=== PATIENT | female | born 1990 ===

== ENCOUNTER 2017-02-08 08:53 | Observation (INO) | payer MEDICAID, OTHER ==
[2017-02-08 08:56] VITALS: BMI 22.8
[2017-02-08 09:01] VITALS: BP 107/58; PULSE 83; RESP 18; TEMP 99; O2SAT 100
[2017-02-08] MEDS ORDERED: Sodium Chloride 0.9% 1,000 ML IV STA (09:15)
[2017-02-08 09:43] LABS: BASO # 0.1 K/uL (0.0-0.2); BASO % 1.1 % (0.0-2.0); EOS # 0.1 K/uL (0.0-0.7); EOS % 1.4 % (0.0-4.0); HEMOGLOBIN 13.6 g/dL (12.0-16.0); LYMPH # 2.3 K/uL (1.0-4.3); LYMPH % 35.8 % (20.0-40.0); MEAN CELL VOLUME 90.2 fl (81.0-99.0); MEAN CORPUSCULAR HEMOGLOBIN 31.8 pg (27.0-31.0); MEAN CORPUSCULAR HGB CONC 35.2 g/dL (33.0-37.0); MEAN PLATELET VOLUME 8.2 fl (7.2-11.7); MONO # 0.4 K/uL (0.0-0.8); MONO % 6.6 % (0.0-10.0); NEUT # 3.5 K/uL (1.8-7.0); NEUT % 55.1 % (50.0-75.0); NRBC % 0.1 % (0.0-0.0); RBC 4.27 Mil/uL (3.80-5.20); RED CELL DISTRIBUTION WIDTH 13.4 % (11.5-14.5); WHITE BLOOD COUNT 6.4 K/uL (4.8-10.8)
[2017-02-08 09:54] LABS: ALB/GLOB RATIO 1.5 (1.0-2.1); ALBUMIN 4.6 g/dL (3.5-5.0); ALT/SGPT 29 U/L (9-52); AST/SGOT 19 U/L (14-36); BLOOD UREA NITROGEN 4 mg/dl (7-17); CALCIUM 10.1 mg/dL (8.4-10.2); GFR AFRICAN-AMERICAN > 60; GFR NON-AFRICAN AMERICAN > 60; LIPASE 52 U/L (23-300)
[2017-02-08 10:23] LABS: SQUAMOUS EPITHIAL 12 /hpf (0-5); URINE BACTERIA OCC (<OCC); URINE BILIRUBIN NEGATIVE (NEGATIVE); URINE BLOOD NEGATIVE (NEGATIVE); URINE CLARITY CLOUDY (Clear); URINE COLOR YELLOW (YELLOW); URINE GLUCOSE (UA) NEG (Normal); URINE HYALINE CAST 0-2 /hpf (0-2); URINE LEUKOCYTE ESTERASE NEG Leu/uL (Negative); URINE NITRATE NEGATIVE (NEGATIVE); URINE PROTEIN 30 mg/dL (NEGATIVE)
--- NOTE | 2017-02-08 12:29 | ED PDOC ---
HPI:Nausea, Vomiting, Diarrhea Time Seen by Provider: 02/08/17 09:06 Chief Complaint (Nursing): Abdominal Pain Chief Complaint (Provider): Nausea, Vomiting, Unable to Tolerate PO History Per: Patient History/Exam Limitations: no limitations Current Symptoms Are (Timing): Still Present Have you had recent travel within the past 21 days to any of the following countries: [place], [place], [place] or [place]?: No Quality Of Discomfort: Cramping Associated Symptoms: Nausea, Vomiting, Loss Of Appetite Exacerbating Factors: Food Last Bowel Movement: Today Additional Complaint(s): Azucena Neff, a 26 year old female, who is several weeks presents to the ED complaining of nausea, vomiting and an inability to tolerate PO. The patient reports she was seen a [facility] 2 days ago for similar complaints. She states she had a urine culture done which showed positive for enterococcus with thompson sensitivity. The patient states she was prescribed macrobid and has been compliant but unable to tolerate as vomits medication up. She states that today she is here because she still cannot tolerate PO. Denies vaginal bleeding. Of Note: Patient has not had any care to date. Past Medical History Reviewed: Historical Data, Nursing Documentation, Vital Signs Vital Signs: Last Vital Signs Temp 99.0 F 02/08/17 09:00 Pulse 83 02/08/17 09:00 Resp 18 02/08/17 09:00 BP 107/58 L 02/08/17 09:00 Pulse Ox 100 02/08/17 09:00 - Medical History PMH: Anxiety, Chronic Kidney Disease Denies: Arthritis, Asthma, Atrial Fibrillation, Bipolar Disorder, Bronchitis , Cardia Arrhythmia, CHF, COPD, Crohn's Disease, Dementia, Depression, Diverticulitis, Emphysema, Fractures, Gastritis, Gall Bladder Disease, HIV, HTN , Hypercholesterolemia, Hyperthyroidism, Hypothyroidism, Migraine, Mitral Valve Prolapse, Multiple Sclerosis, Osteoporosis, Pancreatitis, Parkinson's Disease, Peripheral Edema, Pneumonia, Post Traumatic Stress Disorder, Pulmonary Embolism , Rheumatoid Arthritis, Schizophrenia, Seizures, Sickle Cell Disease, Sexually Transmitted Disease, Sleep Apnea, TIA - Surgical History Surgical History: Appendectomy Denies: Pacemaker - Family History Family History: States: Diabetes - Immunization History Hx Tetanus Toxoid Vaccination: No Hx Influenza Vaccination: No Hx Pneumococcal Vaccination: No - Home Medications Home Medications: Ambulatory Orders Medication Instructions Recorded Nitrofurantoin Macrocrystals 1 cap PO BID #14 cap 07/06/17 [Macrobid] Ondansetron [Zofran] 4 mg PO Q6H PRN #10 tab 02/08/17 - Allergies Allergies/Adverse Reactions: Allergies Allergy/AdvReac Type Severity Reaction Status Date / Time naproxen Allergy Verified 02/06/17 19:05 Review of Systems Gastrointestinal: Positive for: Nausea, Vomiting, Other (Unable to tolerate PO) Genitourinary Female: Negative for: Vaginal Bleeding Physical Exam - Reviewed Nursing Documentation Reviewed: Yes Vital Signs Reviewed: Yes - Physical Exam Appears: Positive for: Non-toxic, In Acute Distress (Mild painful distress) Head Exam: Positive for: ATRAUMATIC, NORMAL INSPECTION, NORMOCEPHALIC Gastrointestinal/Abdominal: Positive for: Normal Exam, Bowel Sounds, Soft. Negative for: Tenderness (No focal tenderness of abdomen.), Guarding, Rebound Back: Positive for: Normal Inspection. Negative for: L CVA Tenderness, R CVA Tenderness Neurologic/Psych: Positive for: Alert, Oriented - Laboratory Results Result Diagrams: 02/08/17 09:30 02/08/17 09:30 - ECG O2 Sat by Pulse Oximetry: 100 (RA) Pulse Ox Interpretation: Normal Medical Decision Making Medical Decision Makin Initial Impression: 26 year old female presenting with nausea, vomiting and inability to tolerate PO Initial Plan: * Tylenol 650mg PO * NS 1000mls IV 1000mls\hr * Zofran 4mg IV * OB Transvaginal * Renal US * Reevaluation Patient will be given IV fluids and antiemitic. Blood work reviewed revealing normal white count and elements of dehydration given elevated BUN and ketones in urine. 1215 Additional IV fluids and lactative ringers ordered and tylenol given for pain. US prelim reports reviewed, twin gestation, patient informed. Scribe Attestation Documented by Vania Sandoval acting as a scribe for Mario Wilson MD. Provider Attestation: All medical record entries made by the Scribe were at my direction and personally dictated by me. I have reviewed the chart and agree that the record accurately reflects my personal performance of the history, physical exam, medical decision making, and the department course for this patient. I have also personally directed, reviewed, and agree with the discharge instructions and disposition. ED OBSERVATION Date of observation admission: 02/08/17 Time of observation admission: 11:30 - Observation admission statement Patient is being placed in observation because:: persistent nausea, hyperemesis gravidarum, evidence of dehydration on labs including ketonuria - Goals of Observation Goals of observation are:: further IVF, antiemetic and Antibiotic for enterococcus UTI on UCx from 2d ago - Progress Note Progress Note: 02/08/17 12:15 remains nauseas, further medication given, unable to tolerate PO 02/08/17 13:55 energy improving, LR to initiate for further hydration Discussed hyperemesis and need countermeasures for such in first trimester 02/08/17 15:12 pt still w nausea, pending D5 1/2NS bolus, PO tolerance Endorse Dr Gaona 3p Disposition - Clinical Impression Clinical Impression: Hyperemesis gravidarum, UTI (urinary tract infection) - Patient ED Disposition Is Patient to be Admitted: Transfer of Care - Disposition Disposition: Transfer of Care Disposition Time: 11:30 Condition: STABLE
[2017-02-08] MEDS ORDERED: Lactated Ringer's 1,000 ML IV SCH (12:30)
--- NOTE | 2017-02-08 13:26 | US ---
PROCEDURE: Renal ultrasound dated 02/08/2017 HISTORY: , back pain hx pyelno COMPARISON: Comparison made with prior renal ultrasound dated 05/02/2016. TECHNIQUE: Sonogram of the kidneys. FINDINGS: RIGHT KIDNEY: Measures: Approximately 10.3 x 4.3 x 5.5 cm. Normal in size, contour and echogenicity. No stone, solid mass lesion or hydronephrosis visualized. LEFT KIDNEY: Measures: Approximately 10.4 x 4.1 x 5.0 cm. Normal in size, contour and echogenicity. No stone, solid mass lesion or hydronephrosis visualized. OTHER FINDINGS: None. IMPRESSION: Unremarkable renal ultrasound.
[2017-02-08] MEDS ORDERED: Dextrose 5%/0.45% NS 1,000 ML IV SCH (13:30)
[2017-02-08] MEDS ORDERED: cefTRIAXone (Rocephin) 1 gm Inj ONE (13:45)
--- NOTE | 2017-02-08 15:21 | ED PDOC ---
- Laboratory Results Result Diagrams: 02/08/17 09:30 02/08/17 09:30 - ECG O2 Sat by Pulse Oximetry: 100 (RA) Medical Decision Making Medical Decision Makinp Endorsed from Dr. Wilson, patient with hyperemesis pending symptomatic relief. Receiving IV fluid hydration. 1800 Pt feeling better. Tolerated PO. DC home with zofran. Home hydration and small frequent meals. Scribe Attestation Documented by Vania Sandoval acting as a scribe for Emma Gaona MD. Provider Attestation: All medical record entries made by the Scribe were at my direction and personally dictated by me. I have reviewed the chart and agree that the record accurately reflects my personal performance of the history, physical exam, medical decision making, and the department course for this patient. I have also personally directed, reviewed, and agree with the discharge instructions and disposition. Disposition - Clinical Impression Clinical Impression: Hyperemesis gravidarum, UTI (urinary tract infection) - POA Present On Arrival: None - Disposition Disposition: Routine/Home Disposition Time: 11:30 Condition: IMPROVED
--- NOTE | 2017-02-10 10:05 | US ---
PROCEDURE: OB Pelvic Ultrasound HISTORY: abd pain, COMPARISON: None available. FINDINGS: UTERUS: Gestational sac: Single intrauterine gestation with two poles. Growth parameters: Fetus A: Gestational sac size: 2.42 cm corresponding to 6 weeks and 3 days of gestational age. Magnolia-rump length: 0.58 cm corresponding to 7 weeks and 0 days of gestational age. Mean ultrasound gestational age: 6 weeks and 5 days. THERESA from ultrasound 09/29/2017. The heart rate is 123 beats per minute. Growth parameters: Fetus B: Gestational sac size: 2.42 cm corresponding to 6 weeks and 3 days of gestational age. Magnolia-rump length: 0.73 cm corresponding to 6 weeks and 4 days of gestational age. Mean ultrasound gestational age: 6 weeks and 5 days. THERESA from ultrasound 09/29/2017. Heart rate: 133 bpm. Rosa-gestational hemorrhage: None. Date of delivery (Ultrasound estimated) : Uterus measures 7.5 x 4.0 x 5.6 cm. Normal in size and appearance. CERVIX: Long and closed. No cervical abnormality seen. RIGHT OVARY: Measures 3.3 x 1.7 x 1.8 cm. No mass lesion. Normal flow. LEFT OVARY: Not visualized. FREE FLUID: There is trace free fluid in the pelvis. OTHER FINDINGS: None. IMPRESSION: Live twin intrauterine gestation. The estimated date of delivery by ultrasound is 09/29/2017.
== END 2017-02-08 20:35 | disposition home or self-care (01) ==
LOC: H.ER 08:53 → H.EROBSV 13:49
PROVIDERS: ADMIT Emergency Medicine; ATTEND Emergency Medicine
DX: O21.0 Mild hyperemesis gravidarum (principal); O23.41 Unspecified infection of urinary tract in pregnancy, first trimester; O26.831 Pregnancy related renal disease, first trimester; O99.89 Other specified diseases and conditions complicating pregnancy, childbirth and the puerperium; Z3A.01 Less than 8 weeks gestation of pregnancy; N18.9 Chronic kidney disease, unspecified; F41.9 Anxiety disorder, unspecified; Z83.3 Family history of diabetes mellitus; R11.2 Nausea with vomiting, unspecified; R19.7 Diarrhea, unspecified

== ENCOUNTER 2018-05-15 11:37 | Emergency (ER) | payer MEDICAID, OTHER ==
[2018-05-15 11:39] VITALS: BMI 23.6
[2018-05-15 11:40] VITALS: O2SAT 100
[2018-05-15] MEDS ORDERED: Sodium Chloride 0.9% 1,000 ML IV STA ×2 (12:43→13:45)
--- NOTE | 2018-05-15 12:55 | ED PDOC ---
HPI: Influenza Time Seen by Provider: 05/15/18 11:57 Chief Complaint: Flu-like Symptoms History Per: Patient Additional complaint(s):: Pt. states she woke up with bodyaches, cough, congestion, vomiting (4 episodes), non-bloody, watery diarrhea (constant), epigastric abd pain. States she took claritin and Tylenol at 0700. Reports all of her coworkers have the same symp toms. Denies hematemesis, chest pain, SOB, hemoptysis, recent travel, melena, hematochezia, BRBPR. Past Medical History Reviewed: Historical Data, Nursing Documentation, Vital Signs Vital Signs: Last Vital Signs Temp 98.4 F 05/15/18 11:39 Pulse 76 05/15/18 11:39 Resp 17 05/15/18 11:39 BP 115/80 05/15/18 11:39 Pulse Ox 100 05/15/18 11:39 - Medical History PMH: Anxiety, Depression, Chronic Kidney Disease Denies: Arthritis, Asthma, Atrial Fibrillation, Bipolar Disorder, Bronchitis, Cardia Arrhythmia, CHF, COPD, Crohn's Disease, Dementia, Diverticulitis, Emphyse ma, Fractures, Gastritis, Gall Bladder Disease, HIV, HTN, Hypercholesterolemia, Hyperthyroidism, Hypothyroidism, Migraine, Mitral Valve Prolapse, Multiple Sclerosis, Osteoporosis, Pancreatitis, Parkinson's Disease, Peripheral Edema, Pneumonia, Post Traumatic Stress Disorder, Pulmonary Embolism, Rheumatoid Arthritis, Schizophrenia, Seizures, Sickle Cell Disease, Sexually Transmitted Disease, Sleep Apnea, TIA - Surgical History Surgical History: Appendectomy Denies: Pacemaker - Family History Family History: States: Diabetes - Immunization History Hx Tetanus Toxoid Vaccination: No Hx Influenza Vaccination: No Hx Pneumococcal Vaccination: No - Home Medications Home Medications: Ambulatory Orders Medication Instructions Recorded Zoloft 03/22/18 Ondansetron ODT [Zofran ODT] 4 mg PO TID #10 odt 05/15/18 Oseltamivir [Tamiflu] 75 mg PO BID #9 cap 05/15/18 Promethazine DM [Phenergan DM 5 - 10 ml PO Q8 PRN #120 ml 05/15/18 Syrup] - Allergies Allergies/Adverse Reactions: Allergies Allergy/AdvReac Type Severity Reaction Status Date / Time naproxen Allergy Severe SWELLING Verified 05/15/18 11:51 Review of Systems ROS Statement: Except As Marked, All Systems Reviewed And Found Negative Constitutional: Positive for: Fever ENT: Positive for: Nose Congestion Respiratory: Positive for: Cough Gastrointestinal: Positive for: Nausea, Vomiting, Abdominal Pain, Diarrhea Physical Exam - Reviewed Nursing Documentation Reviewed: Yes Vital Signs Reviewed: Yes - Physical Exam Appears: Positive for: Well, Non-toxic, No Acute Distress Skin: Positive for: Normal Color, Warm. Negative for: Rash Eye Exam: Positive for: EOMI, Normal appearance, PERRL ENT: Positive for: Normal ENT Inspection Neck: Positive for: Normal, Painless ROM Cardiovascular/Chest: Positive for: Regular Rate, Rhythm Respiratory: Positive for: CNT, Normal Breath Sounds Gastrointestinal/Abdominal: Positive for: Normal Exam, Soft. Negative for: Tenderness Back: Positive for: Normal Inspection. Negative for: L CVA Tenderness, R CVA Tenderness Extremity: Positive for: Normal ROM Neurologic/Psych: Positive for: Alert, Oriented (x3). Negative for: Aphasia, Facial Droop - Laboratory Results Result Diagrams: 05/15/18 13:15 05/15/18 13:15 Urine POC: Negative - ECG O2 Sat by Pulse Oximetry: 100 - Progress ED Course And Treament: Labs, IV NS bolus x 1, zofran 4mg IV, pepcid 20mg IV ordered. Tamiflu PO ordered. 1405 On re-evaluation, pt. reports nausea and abdominal pain have resolved. Tolerating PO fluids. Informed of results and agrees with plan and care. Disposition - Clinical Impression Clinical Impression: Influenza-like symptoms - Patient ED Disposition Is Patient to be Admitted: No - Disposition Referrals: [facility] [Outside] Disposition: Routine/Home Disposition Time: 14:05 Condition: IMPROVED Additional Instructions: JARETH JIMENEZ, thank you for letting us take care of you today. Your provider was Grady Holt MD and you were treated for FLU LIKE SYMPTOMS. The emergency medical care you received today was directed at your acute symptoms. If you were prescribed any medication, please fill it and take as directed. It may take several days for your symptoms to resolve. Return to the Emergency Department if your symptoms worsen, do not improve, or if you have any other problems. Please contact your doctor or call one of the physicians/clinics you have been referred to that are listed on the Patient Visit Information form that is included in your discharge packet. Bring any paperwork you were given at discharge with you along with any medications you are taking to your follow up visit. Our treatment cannot replace ongoing medical care by a primary care provider outside of the emergency department. Thank you for allowing the [facility] team to be part of your care today. If you had an X-Ray or CT scan: A Radiologist will review the ED reading if any change in treatment is needed we will contact you. If you had a blood, urine, or wound culture: It will take several days for the results, if any change in treatment is needed we will contact you. If you had an STI test: It will take 48 hours for the results. Please call after 1 week if you have not heard back. Prescriptions: Ondansetron ODT [Zofran ODT] 4 mg PO TID #10 odt Oseltamivir [Tamiflu] 75 mg PO BID #9 cap Promethazine DM [Phenergan DM Syrup] 5 - 10 ml PO Q8 PRN #120 ml PRN Reason: Cough Instructions: Viral Syndrome (DC) Forms: [employer] (Micronesian), [facility] ED School/Work Excuse
[2018-05-15 13:31] LABS: EOS # 0.1 K/uL (0.0-0.7); EOS % 3.7 % (0.0-4.0); HEMOGLOBIN 13.9 g/dL (12.0-16.0); LYMPH # 1.5 K/uL (1.0-4.3); LYMPH % 37.6 % (20.0-40.0); MEAN CELL VOLUME 89.6 fl (81.0-99.0); MEAN CORPUSCULAR HEMOGLOBIN 30.8 pg (27.0-31.0); MEAN CORPUSCULAR HGB CONC 34.3 g/dL (33.0-37.0); MEAN PLATELET VOLUME 7.6 fl (7.2-11.7); MONO # 0.6 K/uL (0.0-0.8); MONO % 13.8 % (0.0-10.0); NEUT # 1.8 K/uL (1.8-7.0); NEUT % 43.9 % (50.0-75.0); NRBC % 0.2 % (0.0-0.0); RBC 4.53 Mil/uL (3.80-5.20); RED CELL DISTRIBUTION WIDTH 14.6 % (11.5-14.5)
[2018-05-15 13:41] LABS: ALB/GLOB RATIO 1.1 (1.0-2.1); ALBUMIN 4.4 g/dL (3.5-5.0); ALT/SGPT 36 U/L (9-52); AST/SGOT 30 U/L (14-36); BLOOD UREA NITROGEN 5 mg/dl (7-17); CALCIUM 9.5 mg/dL (8.4-10.2); GFR NON-AFRICAN AMERICAN > 60; LIPASE 77 U/L (23-300)
[2018-05-15 13:53] LABS: SQUAMOUS EPITHIAL 3 /hpf (0-5); URINE BILIRUBIN NEGATIVE (NEGATIVE); URINE BLOOD NEGATIVE (NEGATIVE); URINE CLARITY SLIGHTY-CLOUDY (Clear); URINE COLOR YELLOW (YELLOW); URINE GLUCOSE (UA) NEG (Normal); URINE LEUKOCYTE ESTERASE NEG Leu/uL (Negative); URINE PROTEIN NEGATIVE (NEGATIVE); URINE UROBILINOGEN 0.2-1.0 mg/dL (0.2-1.0)
[2018-05-15 15:51] VITALS: BP 120/78; PULSE 70; RESP 16; TEMP 98
== END 2018-05-15 15:51 | disposition home or self-care (01) ==
LOC: H.ER 11:37
DX: J11.1 Influenza due to unidentified influenza virus with other respiratory manifestations (principal)
CPT/HCPCS: 80053; 81003; 81025; 83690; 85025; 87040; 87070; 87430; 87804; 96374; 96375; 99283; J2405; J7030

== ENCOUNTER 2018-09-19 22:43 | Emergency (ER) | payer MEDICAID ==
[2018-09-19 22:43] VITALS: BMI 23.6
[2018-09-19 22:48] VITALS: BP 140/80; RESP 16; TEMP 98.2
[2018-09-19] MEDS ORDERED: Sodium Chloride 0.9% 1,000 ML IV STA (23:13)
--- NOTE | 2018-09-19 23:36 | ED PDOC ---
HPI: Headache Time Seen by Provider: 09/19/18 23:00 Chief Complaint (Nursing): Headache Chief Complaint (Provider): OROURKE History Per: Patient History/Exam Limitations: no limitations Associated Symptoms: Photophobia, Blurred Vision, Nausea, Vomiting Additional Complaint(s): 28 y/o F with no significant PMH who presents with worst OROURKE of her life. Woke up with OROURKE that has gotten worse throughout the day despite taking Ibuprofen, Motrin, Tylenol. + photophobia and feeling that her vision goes away intermittently. One episode of N/V and is feeling nauseous currently. Denies unilateral weakness or dizziness. Last took Tylenol at 7pm and Ibuprofen at 1pm today. Past Medical History Vital Signs: Last Vital Signs Temp 98.2 F 09/19/18 22:45 Pulse 69 09/19/18 22:45 Resp 16 09/19/18 22:45 BP 140/80 09/19/18 22:45 Pulse Ox 100 09/19/18 22:45 - Medical History PMH: Anxiety, Depression, Chronic Kidney Disease Denies: Arthritis, Asthma, Atrial Fibrillation, Bipolar Disorder, Bronchitis, Cardia Arrhythmia, CHF, COPD, Crohn's Disease, Dementia, Diverticulitis, Emphysema, Fractures, Gastritis, Gall Bladder Disease, HIV, HTN, Hypercholesterolemia, Hyperthyroidism, Hypothyroidism, Migraine, Mitral Valve Prolapse, Multiple Sclerosis, Osteoporosis, Pancreatitis, Parkinson's Disease, Peripheral Edema, Pneumonia, Post Traumatic Stress Disorder, Pulmonary Embolism, Rheumatoid Arthritis, Schizophrenia, Seizures, Sickle Cell Disease, Sexually Transmitted Disease, Sleep Apnea, TIA - Surgical History Surgical History: Appendectomy Denies: Pacemaker - Family History Family History: States: Diabetes - Immunization History Hx Tetanus Toxoid Vaccination: No Hx Influenza Vaccination: No Hx Pneumococcal Vaccination: No - Home Medications Home Medications: Ambulatory Orders Medication Instructions Recorded Zoloft 03/22/18 Ondansetron ODT [Zofran ODT] 4 mg PO TID #10 odt 05/15/18 Oseltamivir Cap [Tamiflu] 75 mg PO BID #9 cap 05/15/18 Promethazine DM [Phenergan DM 5 - 10 ml PO Q8 PRN #120 ml 05/15/18 Syrup] Acetaminophen/Butalbital/Caf 1 tab PO Q4 PRN 7 Days tab 09/20/18 [Fioricet] Ibuprofen [Motrin Tab] 800 mg PO Q6 PRN 7 Days tab 09/20/18 - Allergies Allergies/Adverse Reactions: Allergies Allergy/AdvReac Type Severity Reaction Status Date / Time naproxen Allergy Severe SWELLING Verified 09/19/18 22:45 Physical Exam - Reviewed Nursing Documentation Reviewed: Yes Vital Signs Reviewed: Yes - Physical Exam Appears: Positive for: Uncomfortable (crying when provider walked into room) Head Exam: Positive for: ATRAUMATIC Skin: Positive for: Normal Color Eye Exam: Positive for: EOMI, PERRL. Negative for: Nystagmus ENT: Positive for: Normal ENT Inspection Neck: Positive for: Normal, Painless ROM Neurologic/Psych: Positive for: Alert, net mvc developer II-XII (able to puff cheeks, symmetrical smile, no tongue deviation), Oriented, Mood/Affect (appropriate). Negative for: Motor/Sensory Deficits, Aphasia, Facial Droop - Laboratory Results Result Diagrams: 09/19/18 23:30 09/19/18 23:30 - ECG O2 Sat by Pulse Oximetry: 100 Medical Decision Making Medical Decision Making: CBC, BMP Urine preg Head CT w/o contrast Toradol 30mg IV x 1 Reglan 10mg IV x 1 NS 1L IV x [address]: BRAIN No acute intraparenchymal hemorrhage. No mass lesion. No CT evidence for acute territorial infarct. No midline shift or extra-axial collections. VENTRICLES: No hydrocephalus. ORBITS: The orbits are unremarkable. SINUSES AND MASTOIDS: The paranasal sinuses and mastoid air cells are clear. BONES: No fracture. SOFT TISSUES: Unremarkable. IMPRESSION: No acute intracranial abnormality. 01:00am: patient re-evaluated, states pain went from 10/10 to 8/10. Phenergan 25mg IVPB, Benadryl 25mg IV and additional NS 1L IV x 1 ordered. 03:15am: re-evaluated, pt feeling much better with significant improvement in OROURKE. Stable for d/c home. Disposition - Clinical Impression Clinical Impression: Migraine - Patient ED Disposition Is Patient to be Admitted: No Counseled Patient/Family Regarding: Studies Performed, Diagnosis, Need For Followup, Rx Given - Disposition Referrals: Rob Brush, DNP, [employer] [Family Provider] - Disposition: Routine/Home Disposition Time: 04:17 Condition: STABLE Additional Instructions: Take Ibuprofen or Fioricet for OROURKE. F/u with your primary care doctor for further evaluation. Prescriptions: Acetaminophen/Butalbital/Caf [Fioricet] 1 tab PO Q4 PRN 7 Days tab PRN Reason: Headache Ibuprofen [Motrin Tab] 800 mg PO Q6 PRN 7 Days tab PRN Reason: Pain, Moderate (4-7) Instructions: Migraine Headache (DC) Forms: [facility] (Danish) Print Language: POLISH
[2018-09-19 23:39] LABS: BASO % 0.5 % (0.0-2.0); EOS # 0.2 K/uL (0.0-0.7); EOS % 2.8 % (0.0-4.0); HEMOGLOBIN 13.3 g/dL (12.0-16.0); LYMPH # 2.4 K/uL (1.0-4.3); LYMPH % 30.2 % (20.0-40.0); MEAN CELL VOLUME 89.9 fl (81.0-99.0); MEAN CORPUSCULAR HEMOGLOBIN 30.8 pg (27.0-31.0); MEAN CORPUSCULAR HGB CONC 34.2 g/dL (33.0-37.0); MEAN PLATELET VOLUME 7.6 fl (7.2-11.7); MONO # 0.5 K/uL (0.0-0.8); MONO % 6.3 % (0.0-10.0); NEUT # 4.8 K/uL (1.8-7.0); NEUT % 60.2 % (50.0-75.0); NRBC % 0.1 % (0.0-0.0); RBC 4.33 Mil/uL (3.80-5.20); RED CELL DISTRIBUTION WIDTH 13.5 % (11.5-14.5)
[2018-09-19 23:48] LABS: BLOOD UREA NITROGEN 10 mg/dl (7-17); CALCIUM 9.7 mg/dL (8.4-10.2); GFR NON-AFRICAN AMERICAN > 60
[2018-09-20] MEDS ORDERED: Sodium Chloride 0.9% 1,000 ML IV STA (01:17)
[2018-09-20] MEDS ORDERED: DiphenhydrAMINE 50 mg/ml Inj IVPB STA (01:40)
[2018-09-20] MEDS ORDERED: Promethazine 25 MG in Sodium Chloride 0.9% 50 ML IVPB STA (01:40)
[2018-09-20] MEDS ORDERED: DiphenhydrAMINE 50 mg/ml Inj ONE (01:46)
[2018-09-20 04:18] VITALS: PULSE 77
--- NOTE | 2018-09-20 08:46 | CT ---
Date of service: 09/19/2018 PROCEDURE: CT HEAD WITHOUT CONTRAST. HISTORY: R/O bleed COMPARISON: None available. TECHNIQUE: Axial computed tomography images were obtained through the head/brain without intravenous contrast. Radiation dose: Total exam DLP = 798.35 mGy-cm. This CT exam was performed using one or more of the following dose reduction techniques: Automated exposure control, adjustment of the mA and/or kV according to patient size, and/or use of iterative reconstruction technique. FINDINGS: HEMORRHAGE: No intracranial hemorrhage. BRAIN: No mass effect or edema. No atrophy or chronic microvascular ischemic changes. VENTRICLES: Unremarkable. No hydrocephalus. CALVARIUM: Unremarkable. PARANASAL SINUSES: Unremarkable as visualized. No significant inflammatory changes. MASTOID AIR CELLS: Unremarkable as visualized. No inflammatory changes. OTHER FINDINGS: None. IMPRESSION: Normal CT of the Head.
[2018-09-21 06:20] VITALS: O2SAT 100
== END 2018-09-20 04:17 | disposition home or self-care (01) ==
LOC: H.ER 22:43
DX: G43.909 Migraine, unspecified, not intractable, without status migrainosus (principal); H53.19 Other subjective visual disturbances; F41.9 Anxiety disorder, unspecified
CPT/HCPCS: 70450; 80048; 81025; 85025; 96374; 96375; 99285; J1200; J1885; J2550; J2765; J7030